=== PATIENT | male | born 1960 | race Two or more races ===

== ENCOUNTER 2020-08-03 11:49 | Emergency (ER) | payer MEDICAID ==
[~2020-08-03] VITALS: Ht 172.7 cm; Wt 131.5 kg
[2020-08-03 14:54] VITALS: BP 115/60
== END 2020-08-03 14:55 | disposition home or self-care (01) ==
LOC: ER 11:49
DX: M79.604 Pain in right leg (principal); R06.02 Shortness of breath; R53.83 Other fatigue; E11.22 Type 2 diabetes mellitus with diabetic chronic kidney disease; I13.0 Hypertensive heart and chronic kidney disease with heart failure and stage 1 through stage 4 chronic kidney disease, or unspecified chronic kidney disease; I50.9 Heart failure, unspecified; N18.9 Chronic kidney disease, unspecified; E78.5 Hyperlipidemia, unspecified
CPT/HCPCS: 93971